=== PATIENT | male | born 1950 | race Caucasian/White ===

== ENCOUNTER 2019-01-03 17:01 | Emergency (ER) | payer OTHER ==
[~2019-01-03] VITALS: Ht 167.6 cm; Wt 88.5 kg
--- OUTSIDE RECORDS SUMMARY | ~2019-01-03 | XMS | Clinical Summary ---
Demographics + + + | Address | [address] | | | [place] [address] | + + + | Home Phone | | + + + | Preferred Language | Unknown | + + + | Marital Status | | + + + | Christianity Affiliation | Unknown | + + + | Race | Unknown | + + + | Ethnic Group | Unknown | + + + Author + + + | Author | [facility] | | | and [place] | + + + | Organization | [facility] | | | and [place] | + + + | Address | Unknown | + + + | Phone | Unavailable | + + + Support + + +---------+ + | Name | Relationship | Address | Phone | + + +---------+ + | Trinity Eoci | ECON | Unknown | | + + +---------+ + Care Team Providers + +------+ + | Care Manager Apple Name | Role | Phone | + +------+ + PCP | Unavailable | + +------+ + Allergies Not on File Medications Not on file Active Problems Not on file Family History + + +--------+ + | Medical History | Relation | Name | Comments | + + +--------+ + | Cancer | Brother | vaishnavi | gladder | + + +--------+ + | Coronary artery | Brother | vaishnavi | | | disease | | | | + + +--------+ + | Cancer | Father | | lung | + + +--------+ + | Alzheimer's disease | Mother | | | + + +--------+ + | Coronary artery | Mother | | | | disease | | | | + + +--------+ + + +--------+ + + | Relation | Name | Status | Comments | + +--------+ + + | Brother | vaishnavi | Alive | | + +--------+ + + | Brother | vaishnavi | | | + +--------+ + + | Father | | | | + +--------+ + + | Father | | | | + +--------+ + + | Mother | | Alive | | + +--------+ + + | Mother | | | | + +--------+ + + Social History + +-------+ +--------+------+ | Tobacco Use | Types | Packs/Day | Years | Date | | | | | Used | | + +-------+ +--------+------+ | Former Smoker | | | | | + +-------+ +--------+------+ + + + | Sex Assigned at | Date Recorded | | | | + + + | Not on file | | + + + + + + + | Job Start Date | Occupation | Industry | + + + + | Not on file | Not on file | Not on file | + + + + + + + + | Travel History | Travel Start | Travel End | + + + + + + | No recent travel history available. | + + Last Filed Vital Signs Not on file Plan of Treatment + + + + + | Health Maintenance | Due Date | Last Done | Comments | + + + + + | Vaccine: | | | | | Dtap/Tdap/Td (1 - | 9 | | | | Tdap) | | | | + + + + + | Vaccine: Zoster (1 | | | | | of 2) | 0 | | | + + + + + | Breast Cancer | | | | | Screening | 5 | | | + + + + + | Vaccine: | | | | | Pneumococcal 65+ | 5 | | | | Low/Medium Risk (1 | | | | | of 2 - PCV13) | | | | + + + + + | Vaccine: Influenza | | | | | (#1) | 9 | | | + + + + + Results Not on filefrom Last 3 Months"
--- OUTSIDE RECORDS SUMMARY | ~2019-01-03 | XMS | Encounter Summary ---
Demographics + + + | Address | [address] | | | [place] [address] | + + + | Home Phone | | + + + | Preferred Language | Unknown | + + + | Marital Status | | + + + | Advent Affiliation | Unknown | + + + | Race | Unknown | + + + | Ethnic Group | Unknown | + + + Author + + + | Author | [facility] | | | and [place] | + + + | Organization | [facility] | | | and [place] | + + + | Address | Unknown | + + + | Phone | Unavailable | + + + Support + + +---------+ + | Name | Relationship | Address | Phone | + + +---------+ + | [place] E[place] | ECON | Unknown | | + + +---------+ + Care Team Providers + +------+ + | Care Associate Professor Of Education Name | Role | Phone | + +------+ + PCP | Unavailable | + +------+ + Encounter Details +--------+ + + + + | Date | Type | Department | Care Team | Description | +--------+ + + + + | 07/26/ | Hospital | [facility] | | | | 2007 | Encounter | MED CTR XRAY [address] | | | | | | [address] | | | | | | [place] [address] | | | | | | [phone] | | | +--------+ + + + + Social History + +-------+ +--------+------+ | Tobacco Use | Types | Packs/Day | Years | Date | | | | | Used | | + +-------+ +--------+------+ | Never Assessed | | | | | + +-------+ [...] recent travel history available. | + + documented as of this encounter Plan of Treatment Not on filedocumented as of this encounter Visit Diagnoses Not on filedocumented in this encounter"
--- OUTSIDE RECORDS SUMMARY | ~2019-01-03 | XMS | Encounter Summary ---
Demographics + + + | Address | [address] | | | [place] [address] | + + + | Home Phone | | + + + | Preferred Language | Unknown | + + + | Marital Status | | + + + | Adventism Affiliation | Unknown | + + + | Race | Unknown | + + + | Ethnic Group | Unknown | + + + Author + + + | Author | [facility] | | | and [place] | + + + | Organization | [facility] | | | and [place] | + + + | Address | Unknown | + + + | Phone | Unavailable | + + + Support + + +---------+ + | Name | Relationship | Address | Phone | + + +---------+ + | [place] Eoci | ECON | Unknown | | + + +---------+ + Care Team Providers + +------+ + | Care Wedding Consultant Name | Role | Phone | + +------+ + PCP | Unavailable | + +------+ + Encounter Details +--------+ + + + + | Date | Type | Department | Care Team | Description | +--------+ + + + + | 03/16/ | Hospital | [facility] | | | | 2004 | Encounter | MED CTR EMERGENCY | | | | | | CENTER [address] | | | | | | [place] | | | | | | [address] | | | | | | [phone] | | | +--------+ + + + [...]
--- OUTSIDE RECORDS SUMMARY | ~2019-01-03 | XMS | Clinical Summary ---
Demographics + + + | Address | [address] | | | [place] [address] | + + + | Home Phone | | + + + | Preferred Language | Unknown | + + + | Marital Status | Single | + + + | Uatsdin Affiliation | Unknown | + + + | Race | Unknown | + + + | Ethnic Group | Unknown | + + + Author + + + | Author | [email or web address] [employer] (Historical as of | | | 10-10-18) | + + + | Organization | [facility] [employer] (Historical as of | | | 10-10-18) | + + + | Address | Unknown | + + + | Phone | Unavailable | + + + Support + + + + + | Name | Relationship | Address | Phone | + + + + + | [facility] | ECON | [address] | [facility] | [place], | | | | | [place] [address] | | + + + + + Care Team Providers + +------+ + | Care E Learning Manager Name | Role | Phone | + +------+ + | Epi Rutherford MD | PP | | + +------+ + Allergies No Known Allergies Current Medications + + +-------+---------+------+------+-------+ | Prescription | Sig. | Disp. | Refills | Star | End | Statu | | | | | | t | Date | s | | | | | | Date | | | + + +-------+---------+------+------+-------+ | nitroGLYCERIN | Place 0.4 mg under | | | | | Activ | | (NITROSTAT) 0.4 MG | the tongue every 5 | | | | | e | | SL tablet | (five) minutes as | | | | | | | | needed. | | | | | | + + +-------+---------+------+------+-------+ | losartan (COZAAR) | Take 100 mg by mouth | | | | | Activ | | 100 MG tablet | daily. | | | | | e | + + +-------+---------+------+------+-------+ | aspirin 81 MG EC | Take 81 mg by mouth | | | | | Activ | | tablet | daily with | | | | | e | | | breakfast. | | | | | | + + +-------+---------+------+------+-------+ | metoprolol | Take 100 mg by mouth | | | | | Activ | | (TOPROL-XL) 100 MG | daily. | | | | | e | | 24 hr tablet | | | | | | | + + +-------+---------+------+------+-------+ | omeprazole | Take 20 mg by mouth | | | | | Activ | | (PRILOSEC) 20 MG | 2 (two) times daily. | | | | | e | | capsule | | | | | | | + + +-------+---------+------+------+-------+ Active Problems + + + | Problem | Noted Date | + + + | Bilateral carpal tunnel syndrome | 05/06/2015 | + + + | SOB (shortness of breath) | 04/06/2013 | + + + | Abnormal ECG | 04/06/2013 | + + + Family History + + +--------+ + | Medical History | Relation | Name | Comments | + + +--------+ + | Cancer | Brother | vaishnavi | gladder | + + +--------+ + | Coronary art dis | Brother | vaishnavi | | + + +--------+ + | Cancer | Father | | lung | + + +--------+ + | Alzheimer's disease | Mother | | | + + +--------+ + | Coronary art dis | Mother | | | + + +--------+ + + +--------+ + + | Relation | Name | Status | Comments | + +--------+ + + | Brother | vaishnavi | Alive | | + +--------+ + + | Father | | | | + +--------+ + + | Mother | | Alive | | + +--------+ + + Social History + +-------+ +--------+ + | Tobacco Use | Types | Packs/Day | Years | Date | | | | | Used | | + +-------+ +--------+ + | Former Smoker | | | | Quit: 02/25/1996 | + +-------+ +--------+ + + +---+---+---+ | Smokeless Tobacco: | | | | | Never Used | | | | + +---+---+---+ + + +---------+ + | Alcohol Use | Drinks/We | oz/Week | Comments | | | ek | | | + + +---------+ + | No | | | | + + +---------+ + + + + | Sex Assigned at | Date Recorded | | | | + + + | Not on file | | + + + Last Filed Vital Signs + + + + | Vital Sign | Reading | Time Taken | + + + + | Blood Pressure | 130/78 | 04/06/2013 9:50 AM PST | + + + + | Pulse | 60 | 04/06/2013 9:47 AM PST | + + + + | Temperature | - | - | + + + + | Respiratory Rate | - | - | + + + + | Oxygen Saturation | 98% | 04/06/2013 9:47 AM PST | + + + + | Inhaled Oxygen | - | - | | Concentration | | | + + + + | Weight | 87.5 kg (193 lb) | 04/06/2013 9:47 AM PST | + + + + | Height | 167.6 cm (5' 6") | 04/06/2013 9:47 AM PST | + + + + | Body Mass Index | 31.15 | 04/06/2013 9:47 AM PST | + + + + Plan of Treatment + + + + [...] + Results Not on filefrom Last 3 Months Insurance + +--------+ +------+-------+---------+ | Payer | Benefi | Subscriber | Type | Phone | Address | | | t Plan | ID | | | | | | / | | | | | | | Group | | | | | + +--------+ +------+-------+---------+ | [employer] | [employer] | [id number] | | | | | | RECTIO | | | | | | | NAL | | | | | | | HEALTH | | | | | | | | | | | | | | PARTNE | | | | | | | RS | | | | | + +--------+ +------+-------+---------+ + +--------+ +--------+ + + | Guarantor Name | Accoun | Relation to | Date | Phone | Billing Address | | | t Type | Patient | of | | | | | | | | | | + +--------+ +--------+ + + | CORRE[employer],EASTERN | Correc | Self [birth year] Home: | [address] | | | tional | | 1901 | [phone] | [place] | | | | | | [phone] | [address] | | | Facili | | | | | | | ty | | | | | + +--------+ +--------+ + +
--- OUTSIDE RECORDS SUMMARY | ~2019-01-03 | XMS | Encounter Summary ---
Demographics + + + | Address | [address] | | | [place] [address] | + + + | Home Phone | | + + + | Preferred Language | Unknown | + + + | Marital Status | | + + + | Restorationist Affiliation | Unknown | + + + | Race | Unknown | + + + | Ethnic Group | Unknown | + + + Author + + + | Author | [facility] | | | and [place] | + + + | Organization | [facility] | | | and [place] | + + + | Address | Unknown | + + + | Phone | Unavailable | + + + Support + + +---------+ + | Name | Relationship | Address | Phone | + + +---------+ + | [place] Eoci | ECON | Unknown | | + + +---------+ + Care Team Providers + +------+ + | Care Biophysics Teacher Name | Role | Phone | + +------+ + PCP | Unavailable | + +------+ + Encounter Details +--------+ + + + + | Date | Type | Department | Care Team | Description | +--------+ + + + + | 03/16/ | Hospital | [facility] | | | | 2004 | Encounter | MED CTR EMERGENCY | | | | | | CENTER [address] | | | | | | [place] | | | | | | [address] | | | | | | [phone] | | | +--------+ + + + [...]
--- OUTSIDE RECORDS SUMMARY | ~2019-01-03 | XMS | Clinical Summary ---
Demographics + + + | Address | [address] | | | [place] [address] | + + + | Home Phone | | + + + | Preferred Language | Unknown | + + + | Marital Status | | + + + | Muslim Affiliation | Unknown | + + + | Race | Unknown | + + + | Ethnic Group | Unknown | + + + Author + + + | Author | [facility] | | | and [place] | + + + | Organization | [facility] | | | and [place] | + + + | Address | Unknown | + + + | Phone | Unavailable | + + + Support + + +---------+ + | Name | Relationship | Address | Phone | + + +---------+ + | Lea Eoci | ECON | Unknown | | + + +---------+ + Care Team Providers + +------+ + | Care Oil Extractor Name | Role | Phone | + [...]
--- OUTSIDE RECORDS SUMMARY | ~2019-01-03 | XMS | Clinical Summary ---
Demographics + + + | Address | [address] | | | [place] [address] | + + + | Home Phone | | + + + | Preferred Language | Unknown | + + + | Marital Status | Single | + + + | Orthodoxy Affiliation | Unknown | + + + | Race | Unknown | + + + | Ethnic Group | Unknown | + + + Author + + + | Author | [facility] (Historical as of | | | 10-10-18) | + + + | Organization | [facility] (Historical as of | | | 10-10-18) | + + + | Address | Unknown | + + + | Phone | Unavailable | + + + Support + + + + + | Name | Relationship | Address | Phone | + + + + + | [facility] | ECON | [address] | [facility] | | [place], | | | | | [place] [address] | | + + + + + Care Team Providers + +------+ + | Care Elderly Companion Name | Role | Phone | + [...] +------+-------+---------+ | [employer] | FC-COR | [id number] | | | | | | RECTIO [...] Self | [birth year] | Home: | [address] | | | tional | | 1901 | [phone] | [place] | | | | | | [address] | [address] | | | Facili | | | | | | | ty | | | | | + +--------+ +--------+ + +
--- OUTSIDE RECORDS SUMMARY | ~2019-01-03 | XMS | Encounter Summary ---
Demographics + + + | Address | [address] | | | [place] [address] | + + + | Home Phone | | + + + | Preferred Language | Unknown | + + + | Marital Status | | + + + | Yarsanism Affiliation | Unknown | + + + [...] Phone | + + +---------+ + | [place] Eoci | ECON | Unknown | | + + +---------+ + Care Team Providers + +------+ + | Care Builder Beam Name | Role | Phone | + +------+ + PCP | Unavailable | + +------+ + Encounter Details +--------+ + + + + | Date | Type | Department | Care Team | Description | +--------+ + + + + | 02/28/ | Hospital | [facility] | Sebastian Perez MD | | | 2005 - | Encounter | [facility] | [address] | | | | | INTENSIVE CARE UNIT | Aramis Mccarthy | | | 03/01/ | | [address] | [place], [place] | | | 2005 | | [place] | [address] | | | | | [address] | [phone] | | | | | [phone] | | | +--------+ + + + [...]
--- OUTSIDE RECORDS SUMMARY | ~2019-01-03 | XMS | Encounter Summary ---
Demographics + + + | Address | [address] | | | [place] [address] | + + + | Home Phone | | + + + | Preferred Language | Unknown | + + + | Marital Status | | + + + | Yazdanism Affiliation | Unknown | + + + | Race | Unknown | + + + | Ethnic Group | Unknown | + + + Author + + + | Author | [facility] | | | and [place] | + + + | Organization | [facility] | | | and [place] | + + + | Address | Unknown | + + + | Phone | Unavailable | + + + Support + + +---------+ + | Name | Relationship | Address | Phone | + + +---------+ + | [place] E[place] | ECON | Unknown | | + + +---------+ + Care Team Providers + +------+ + | Care Passenger Tire Builder Name | Role | Phone | + +------+ + PCP | Unavailable | + +------+ + Encounter Details +--------+ + + + + | Date | Type | Department | Care Team | Description | +--------+ + + + + | 02/28/ | Hospital | [facility] | Sebastian Perez MD | | | 2005 - | Encounter | [facility] | [address] | | | | | INTENSIVE CARE UNIT | Aramis Mccarthy | | | 03/01/ | | [address] | [place], [place] | | | 2005 | | [place], [place] | [address] | | | | | [address] | [phone] | | | | | [phone] | | | +--------+ + + + [...]
--- OUTSIDE RECORDS SUMMARY | ~2019-01-03 | XMS | Encounter Summary ---
Demographics + + + | Address | [address] | | | [place] [address] | + + + | Home Phone | | + + + | Preferred Language | Unknown | + + + | Marital Status | | + + + | Zoroastrianism Affiliation | Unknown | + + + | Race | Unknown | + + + | Ethnic Group | Unknown | + + + Author + + + | Author | [facility] | | | and [place] | + + + | Organization | [facility] | | | and [place] | + + + | Address | Unknown | + + + | Phone | Unavailable | + + + Support + + +---------+ + | Name | Relationship | Address | Phone | + + +---------+ + | [place] E[place] | ECON | Unknown | | + + +---------+ + Care Team Providers + +------+ + | Care Automotive Glazier Name | Role | Phone | + +------+ + PCP | Unavailable | + +------+ + Encounter Details +--------+ + + + + | Date | Type | Department | Care Team | Description | +--------+ + + + + | 07/26/ | Hospital | [facility] | | | | 2007 | Encounter | MED CTR XRAY [address] | | | | | | [address] | | | | | | [place] [address] | | | | | | [phone] | | | +--------+ + + + [...]
[~2019-01-03 17:01] MED LIST: ANTIFUNGAL30 GM TOP; ASPIRIN EC81 MG PO; CHLORTHALIDONE50 MG PO; COZAAR100 MG PO; GABAPENTIN100 MG PO; METOPROLOL SUCC50 MG PO; MICROZIDE12.5 MG PO; NITROSTAT0.4 MG SL; NORCO 5-325 TA1 EACH PO; OMEPRAZOLE20 MG PO; ZOFRAN ODT4 MG SL
--- NOTE | 2019-01-04 07:19 | EKG ---
[facility] [address] [facility] [address] [place], [place] [address] Signed Normal sinus rhythm Left anterior fascicular block Abnormal ECG Confirmed by JUAN QUEVEDO MD ([id number]) on 01/04/2019 7:19:14 AM Electronically Signed By: JUAN QUEVEDO MD 01/04/19 0719 PATIENT NAME: YESSENIA GRIFFITH JOSE Electrocardiogram DATE OF : 48 PHYSICIAN: JUAN QUEVEDO MD REPORT #: [id number] REPORT IS CONFIDENTIAL AND NOT TO BE RELEASED WITHOUT AUTHORIZATION
== END 2019-01-03 21:43 | disposition home or self-care (01) ==
LOC: ED 17:01
DX: R07.2 Precordial pain (principal); I10 Essential (primary) hypertension; Z86.73 Personal history of transient ischemic attack (TIA), and cerebral infarction without residual deficits; I25.2 Old myocardial infarction; Z87.891 Personal history of nicotine dependence; Z88.8 Allergy status to other drugs, medicaments and biological substances; Z79.899 Other long term (current) drug therapy
CPT/HCPCS: 71045; 80053; 84484; 85025; 93005; 93010; 99285-25

== ENCOUNTER 2019-04-10 13:27 | Emergency (ER) | payer OTHER ==
[~2019-04-10] VITALS: Ht 167.6 cm; Wt 88.5 kg
[2019-04-10] MEDS ORDERED: ZYRTEC10 MG PO (13:51)
== END 2019-04-10 16:58 | disposition home or self-care (01) ==
LOC: ED 13:27
DX: R25.1 Tremor, unspecified (principal); I10 Essential (primary) hypertension; I25.2 Old myocardial infarction; Z87.891 Personal history of nicotine dependence; Z79.899 Other long term (current) drug therapy
CPT/HCPCS: 70450; 99283-25

== ENCOUNTER 2019-04-25 00:30 | Emergency (ER) | payer OTHER ==
[~2019-04-25] VITALS: Ht 167.6 cm; Wt 88.5 kg
[~2019-04-25 00:30] MED LIST changes: +ZYRTEC10 MG PO
--- OUTSIDE RECORDS SUMMARY | 2019-04-25 00:32 | XMS ---
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 Radha has no Care Guidelines for this patient. Abel VISIT COUNT (12 MO.) 3 [facility] H. TOTAL 3 NOTE: Visits indicate total known visits. ED/C VISIT TRACKING (12 MO.) 04/25/2019 00:30 [facility] [place] TYPE: Emergency COMPLAINT: - CHEST PAIN 04/10/2019 13:27 [facility] [place] TYPE: Emergency COMPLAINT: - R ARM/SIDE SHAKING DIAGNOSES: - Essential (primary) hypertension - Tremor, unspecified - Tremor, unspecified - Personal history of nicotine dependence - Other superintendent container terminal (current) drug therapy - Old myocardial infarction 01/03/2019 17:02 [facility] TYPE: Emergency COMPLAINT: - CHEST PAIN DIAGNOSES: - Chest pain, unspecified - Essential (primary) hypertension - Other superintendent container terminal (current) drug therapy - Personal history of nicotine dependence - Old myocardial infarction - Allergy status to oth drug/meds/biol subst status - Prsnl hx of TIA (TIA), and cereb infrc w/o resid deficits - Precordial pain INPATIENT VISIT TRACKING (12 MO.) No inpatient visits to display in this time frame [email or web address]
--- NOTE | 2019-04-25 13:10 | EKG ---
[facility] [address] [facility] [address] [place] [address] Signed Sinus bradycardia Left axis deviation Incomplete right bundle branch block Abnormal ECG When compared with ECG of 03-JAN-2019 17:05, No significant change was found Confirmed by LAMAR BHATT MD ([id number]) on 04/25/2019 1:10:31 PM Electronically Signed By: LAMAR BHATT MD 04/25/19 1310 PATIENT NAME: YESSENIA GRIFFITH Electrocardiogram DATE OF : 48 PHYSICIAN: LAMAR BHATT MD REPORT #: [id number] REPORT IS CONFIDENTIAL AND NOT TO BE RELEASED WITHOUT AUTHORIZATION
== END 2019-04-25 03:00 | disposition home or self-care (01) ==
LOC: ED 00:30
DX: R07.2 Precordial pain (principal); I25.2 Old myocardial infarction; I10 Essential (primary) hypertension; Z86.73 Personal history of transient ischemic attack (TIA), and cerebral infarction without residual deficits; Z88.8 Allergy status to other drugs, medicaments and biological substances; Z79.899 Other long term (current) drug therapy
CPT/HCPCS: 71045; 80053; 83735; 84484; 85025; 93005; 93010; 99285-25

== ENCOUNTER 2019-08-13 01:30 | Observation (INO) | payer OTHER ==
[~2019-08-13] VITALS: Ht 167.6 cm; Wt 78.7 kg
[~2019-08-13 01:30] MED LIST changes: +CHLORTHALIDONE25 MG PO; -MICROZIDE12.5 MG PO
[2019-08-13] MEDS ORDERED: COZAAR50 MG PO (01:39)
[2019-08-13] MEDS ORDERED: NORCO 5-325 TA1 EACH PO (01:40)
--- NOTE | 2019-08-13 06:15 | NUR ---
Patient arrives to the unit via stretcher with 2 guard escort. Patient transfers to hospital bed with nursing staff assist. Vital signs taken, assessment complete. Patient in four point restraints.
--- NOTE | 2019-08-13 06:45 | NUR ---
FAXED TO [facility] ATTN CAROLEE [phone] SENT: FACESHEET/ED REPORTS. FAX CONFIRMATION RECEIVED [phone].
--- NOTE | 2019-08-13 06:55 | NUR ---
Patient sleeping, SpO2 falls to 77% on RA. 2LNC in place, SpO2 climbs to 98%.
--- NOTE | 2019-08-13 07:30 | NUR ---
PATIENT SHIFT REPORT RECIEVED FROM ROUTE SALES MANAGER RN. PATIENT RESTING IN BED WITH 2 GARDS AT THE BEDSDIE. CALL LIGHT IN REACH. WILL CONTINUE TO CLOSELY MONITOR.
--- NOTE | 2019-08-13 08:48 | NUR ---
PATIENT ASSESSMENT COMPLETED. PATIENT BREATH SOUNDS CLEAR. PATIENT ON RA AND SENIES SOB. BOWEL TONES ACTIVE. PATIENT DENIES TENDERNESS IN THE ABD. PATIENT DENIES CHEST PAIN. PATIENTS ONLY COMPLAINT IS SOME LEG CRAMPS THROUGH THE NIGHT. PATIENT HAS SHACKLES TO UPPER AND LOWER EXTREMITIES. CMS INTACT. PATIENT GOT UP TO THE BATHROOM WITH THE GARDS ASSIST. NO OTHER NEEDS AT THIS TIME. WILL CONTINUE TO CLOSELY MONITOR.
--- NOTE | 2019-08-13 09:15 | NUR ---
PATIENT IN BED WITH GUARDS IN ROOM. PATIENT DENIES USING ANY DME AT [facility]. HE STATES HE IS NORMALLY AMBULATORY. STATES HE HAS SOME TINGLING IN FEET THIS MORNING. DISCHARGE WILL BE TO [facility] PER THEIR PROTOCOL.
--- NOTE | 2019-08-13 10:00 | NUR ---
PATIENT WILL TRANSFER TO ROOM [address] ON [facility]. SEE NEW ORDERS AT THIS TIME. PATIENT SITTING AT THE EDGE OF THE BED STRETCHING HIS LEGS D/T LEG CRAMPS. MD DHILLON IS AWARE OF CRAMPING. WILL CONTINUE TO CLOSELY MONITOR.
--- NOTE | 2019-08-13 10:04 | EKG ---
[facility] [address] [facility] [place], [place] [address] Signed Normal sinus rhythm Incomplete right bundle branch block Abnormal QRS-T angle, consider primary T wave abnormality Abnormal ECG When compared with ECG of 25-APR-2019 00:34, Confirmed by JOSE DHILLON DO ([id number]) on 08/13/2019 10:04:11 AM Electronically Signed By: JOSE DHILLON DO 08/13/19 1004 PATIENT NAME: YESSENIA GRIFFITH Electrocardiogram DATE OF : 48 PHYSICIAN: JOSE DHILLON DO REPORT #: [id number] REPORT IS CONFIDENTIAL AND NOT TO BE RELEASED WITHOUT AUTHORIZATION
--- NOTE | 2019-08-13 10:32 | NUR ---
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 ADDED TO PT'S [facility] ALLERGY LIST, DIETARY CALLED AND NOTIFIED, PT TRANSFERRING TO ROOM 116.
--- NOTE | 2019-08-13 11:35 | NUR ---
PATIENT TRANSFERED TO ROOM 116. REPORT GIVEN TO AISLINN SALMON. ALL UPDATES GIVEN. PATIENT HAS A 250ML BOLUS GOING AT THIS TIME. STOP AFTER BOLUS IS FINISHED. ALL BELONINGS SENT WITH PATIENT. GARDAren X2 REMAIN WITH THE PATIENT. LUNCH ORDERED. NO FURTHER QUESTIONS.
--- NOTE | 2019-08-13 11:45 | NUR ---
1135: Pt arrived to room 116, report recieved from Marisel SALMON. Pt oriented to his room. 2 guards present and restrainted per the guards. Pt denies any sob, cp or any other problems and states "even the cramps are gone". VSS.
--- NOTE | 2019-08-13 12:37 | NUR ---
PT NOW EATING LUNCH AND DENIES ANY PROBLEMS AT THIS TIME.
--- NOTE | 2019-08-13 14:21 | NUR ---
PT RESTING IN HIS BED AND DENIES ANY PAIN OR PROBLEMS. NO NOTED CHANGES IN CONDITION NOTED, SEE ASSESSMENT.
[2019-08-13] MEDS ORDERED: NORVASC5 MG PO (16:17)
[2019-08-13] MEDS ORDERED: TUCKS1 EAC1 TOP (16:18)
[2019-08-13] MEDS ORDERED: ZYRTEC10 MG PO (16:19)
[2019-08-13] MEDS ORDERED: VOLTAREN100 GM TOP (16:21)
[2019-08-13] MEDS ORDERED: THERA-GEL251 ML TOP (16:24)
[2019-08-13] MEDS ORDERED: ALLERGY EYE DRO10 M1 OU (16:25)
--- NOTE | 2019-08-13 16:29 | NUR ---
MED REC COMPLETE
--- NOTE | 2019-08-13 16:35 | NUR ---
PT RESTING IN THE BED AND DENIES ANY CRAMP, SOB OR CHEST PAIN. HE STATES THAT HE IS DOING "GREAT". TWO GUARDS REMAIN PRESENT IN THE ROOM WITH THE PT.
--- NOTE | 2019-08-13 17:54 | NUR ---
PATIENT SITTING UP IN BED VISITING WITH OFFICERS AND EATING DINNER. VITALS AND I&OS DONE AND CHARTED. CALL LIGHT IN REACH NO OTHER NEEDS
--- NOTE | 2019-08-13 19:28 | NUR ---
PATIENT HAVING NO PAIN AND EATING DINNER IN STANDARD EOCI RESTRAINTS WITH 2 OFFICERS PRESENT, PATIENT HAVING A LITTLE REFLUX AND REQUESTING SOMETHING ELSE FOR THAT AND WAS INFORMED. CALL LIGHT IN REACH.
--- NOTE | 2019-08-13 21:30 | NUR ---
PATIENT'S IV SITE ROTATED AND WROTE AN ORDER FOR EXTRA 25MG OF COZAAR TONIGHT. RIGHT AC IV PULLED AND LEFT AC IV STARTED, 22G, DRAWS AND FLUSHES WELL. PATIENT REMAINS IN STANDARD [facility] RESTRAINTS WITH 2 OFFICERS PRESENT. CALL LIGHT IN REACH.
--- NOTE | 2019-08-13 22:43 | NUR ---
PATIENT CONTINUES TO SIT IN BED AND WATCH TV WITH 2 [facility] OFFICERS PRESENT. CALL LIGHT IN REACH.
--- NOTE | 2019-08-13 23:25 | NUR ---
PATIENT'S LIGHTS AND TV OFF NOW, PATIENT RESTING QUIETLY, STAUS UNCHANGED, AND 2 [facility] OFFICERS IN RM.
--- NOTE | 2019-08-14 01:09 | NUR ---
[facility] OFFICERS HAVE CHANGED SHIFT, PATIENT IS RESTING IN BED WATCHING TV, AND WAS GIVEN 240MLS OF CRANBERRY JUICE, STILL WITHIN HIS FLUID RESTRICTION. PATIENT HAS NO OTHER NEEDS AT THIS TIME. CALL LIGHT IN REACH.
--- NOTE | 2019-08-14 01:38 | NUR ---
PATIENT AWAKE AND VISITING WITH [facility] OFFICERS. CALL LIGHT IN REACH. ASSESSMENT UNCHANGED.
--- NOTE | 2019-08-14 03:31 | NUR ---
PATIENT IS STILL TALKING WITH THE 2 [facility] OFFICERS, BUT SAYS HE IS GOING TO TRY AND GET SOME SLEEP NOW. CALL LIGHT IN REACH AND LIGHTS TURNED DOWN.
--- NOTE | 2019-08-14 05:07 | NUR ---
PATIENT HAS ONLY SLEPT FOR ABOUT 1.5HRS TONIGHT ACCORDING TO THE 2 OFFICERS IN THE ROOM. HE HAS HAD NO PAIN OR SOB. REMIANS IN STANDARD [facility] RESTRAINTS. NEW 22G IV PLACED IN THE LAC AND RAC PRE-HOSPITAL START WAS DC'D. PATIENT AMBULATES WITHOUT DIFFICULTY AND IS CONSTANTLY TALKING AND TELLING STORIES. PATIENT IS EAGER TO GO BACK TO [facility] THIS MORNING. CALL LIGHT IS IN REACH AND PATIENT IS WATCHING TV.
--- NOTE | 2019-08-14 07:12 | NUR ---
Report received, orders acknowledged.
--- NOTE | 2019-08-14 09:15 | NUR ---
Patient laying in bed in four-point restraints, two guards standing at bedside. AM medications given, assessment complete. Warm blanket provided, denies further needs at this time. Call light within reach.
--- NOTE | 2019-08-14 10:01 | NUR ---
PATIENT IN BED WATCHING TV, 2 GUARDS IN ROOM. NO VOID AT THIS TIME, WILL CHECK BACK IN. CALL LIGHT IN REACH. NO FURTHER NEEDS AT THIS TIME.
--- NOTE | 2019-08-14 11:15 | NUR ---
Patient ambulating in room with four-point restraints in place, two guards in room. Requests warm blankets, which are provided. Denies further needs at this time, call light within reach.
--- NOTE | 2019-08-14 12:28 | NUR ---
Patient sitting up in bed, four-point restraints in place. Two guards standing at bedside. Lunch delivered. Patient denies needs at this time, call light within reach.
--- NOTE | 2019-08-14 15:00 | NUR ---
Patient sitting up in bed with four-point restraints on, two guards at bedside. Denies needs at this time, call light within reach.
--- NOTE | 2019-08-14 17:00 | NUR ---
Patient sitting up in bed. Discharge packet given to guards. Patient in four-point restraints. Leaves unit in wheelchair with four-point shackles and two guards.
--- NOTE | 2019-08-14 17:27 | NUR ---
PATIENT SITTING UP TO EAT DINNER, 2 GUARDS IN ROOM. IV TAKEN OUT UPON RN REQUEST. CATH IN TACT AND LOOKED GOOD, RN NOTIFED. CALL LIGHT IN REACH. NO FURTHER NEEDS AT THIS TIME.
--- NOTE | 2019-08-14 18:16 | NUR ---
Report given to RN at [facility]
== END 2019-08-14 17:50 | disposition home or self-care (01) ==
LOC: ED 01:30 → CCU 01:31 → MS 11:35
PROVIDERS: ADMIT Student in an Organized Health Care Education/Training Program
DX: E87.1 Hypo-osmolality and hyponatremia (principal); I10 Essential (primary) hypertension; K21.9 Gastro-esophageal reflux disease without esophagitis; I25.10 Atherosclerotic heart disease of native coronary artery without angina pectoris; Z88.8 Allergy status to other drugs, medicaments and biological substances; Z79.899 Other long term (current) drug therapy
CPT/HCPCS: 36415; 71045; 80048; 80053; 81001; 83735; 84295; 84300; 84484; 85025; 85379; 85610; 93005; 93010; 96360; 96361; 96374; 99285-25; C9803; G0378; J3475; J7040; U0002

== ENCOUNTER 2019-09-07 01:56 | Emergency (ER) | payer OTHER ==
[~2019-09-07] VITALS: Ht 167.6 cm; Wt 75.8 kg
--- OUTSIDE RECORDS SUMMARY | ~2019-09-07 | XMS | Clinical Summary ---
Demographics + + + | Address | [address] | | | [place] [address] | + + + | Home Phone | | + + + | Preferred Language | Unknown | + + + | Marital Status | | + + + | Nondenominational Affiliation | Unknown | + + + | Race | Unknown | + + + | Ethnic Group | Unknown | + + + Author + + + | Author | [facility] | | | and [place] | + + + | Organization | [facility] | | | and [place] | + + + | Address | Unknown | + + + | Phone | Unavailable | + + + Support + + +---------+ + | Name | Relationship | Address | Phone | + + +---------+ + | [place] E[place] | ECON | Unknown | | + + +---------+ + Care Team Providers + +------+ + | Care Research Laboratory Manager Name | Role | Phone | [...] + + + Last Filed Vital Signs Not on file Plan of Treatment +--------+---------+ + + + | Date | Type | Specialty | Care Team | Description | +--------+---------+ + + + | 09/20/ | Office | Cardiology | Ezra Townsend, | | | 2019 | Visit | | MD [address] | | | | | | [place], | | | | | | [place] [address] | | | | | | [phone] | | | | | | | | +--------+---------+ + + + + + +-------+ + | Health Maintenance | Due Date | Last | Comments | | | | Done | | + + +-------+ + | Hepatitis C | | | | | Screening | 0 | | | + + +-------+ + | Vaccine: | | | | | Dtap/Tdap/Td (1 - | 9 | | | | Tdap) | | | | + + +-------+ + | Colorectal Cancer | | | | | Screening | 0 | | | | (Colonoscopy) | | | | + + +-------+ + | Vaccine: Zoster (1 | | | | | of 2) | 0 | | | + + +-------+ + | Breast Cancer | | | | | Screening | 5 | | | + + +-------+ + | Vaccine: | | | | | Pneumococcal 65+ (1 | 5 | | | | of 1 - PPSV23) | | | | + + +-------+ + | Adult Annual | | | | | Wellness Visit | 0 | | | + + +-------+ + | Statin Therapy | | | | | (optimal intensity) | 0 | | | + + +-------+ + | Vaccine: Influenza | | | | | (#1) | 0 | | | + + +-------+ + Results Not on filefrom Last 3 Months Insurance + +--------+ +--------+-------+---------+--------+ | Payer | Benefi | Subscriber | Effect | Phone | Address | Type | | | t Plan | ID | margarito | | | | | | / | | Dates | | | | | | Group | | | | | | + +--------+ +--------+-------+---------+--------+ | DEPARTMENT OF | CORRCT | [id number] | Effect | | | Indemn | | CORRECTIONS | NL | | margarito | | | ity | | | HLTH | | for | | | | | | FIRST | | all | | | | | | [place] | | dates | | | | + +--------+ +--------+-------+---------+--------+ + +--------+ +--------+ + + | Guarantor Name | Accoun | Relation to | Date | Phone | Billing Address | | | t Type | Patient | of | | | | | | | | | | + +--------+ +--------+ + + | [employer] | [employer] | Employer | [birth year] | | [id number] | | [place] | ate | | 1902 | [phone] | [address] [facility] [place] | | | | | | [place] (Home) | [phone] | + +--------+ +--------+ + + Advance Directives + + + + + | Type | Date Recorded | Patient | Explanation | | | | Modern And Contemporary Art Curator | | + + + + + | Power of | | | | | Concrete Inspector | | | | + + + + + | Advance | | | | | Directive | | | | + + + + +"
--- OUTSIDE RECORDS SUMMARY | ~2019-09-07 | XMS | Encounter Summary ---
Demographics + + + | Address | [address] | | | [place] [address] | + + + | Home Phone | | + + + | Preferred Language | Unknown | + + + | Marital Status | | + + + | Gnosticism Affiliation | Unknown | + + + | Race | Unknown | + + + | Ethnic Group | Unknown | + + + Author + + + | Author | [facility] | | | and [place] | + + + | Organization | [facility] | | | and [place] | + + + | Address | Unknown | + + + | Phone | Unavailable | + + + Support + + +---------+ + | Name | Relationship | Address | Phone | + + +---------+ + | [place] Eoci | ECON | Unknown | | + + +---------+ + Care Team Providers + +------+ + | Care Generator Switchboard Operator Name | Role | Phone | + +------+ + PCP | Unavailable | + +------+ + Encounter Details +--------+ + + + + | Date | Type | Department | Care Team | Description | +--------+ + + + + | 02/28/ | Hospital | [facility] | Sebastian Perez MD | | | 2005 - | Encounter | [facility] | [address] | | | | | INTENSIVE CARE UNIT | Aramis Mccarthy | | | 03/01/ | | [address] | [place], [place] | | | 2005 | | [place], [place] | [address] | | | | | [address] | [phone] | | | | | [phone] | | | +--------+ + + + [...] on file | | + + + documented as of this encounter Plan of Treatment +--------+---------+ + + + | Date | Type | Specialty | Care Team | Description | +--------+---------+ + + + | 09/20/ | Office | Cardiology | Ezra Townsend, | | | 2019 | Visit | | MD [address] | | | | | | [place], | | | | | | [place] [address] | | | | | | [phone] | | | | | | | | +--------+---------+ + + + documented as of this encounter Visit Diagnoses Not on filedocumented in this encounter"
--- OUTSIDE RECORDS SUMMARY | ~2019-09-07 | XMS | Encounter Summary ---
Demographics + + + | Address | [address] | | | [place] [address] | + + + | Home Phone | | + + + | Preferred Language | Unknown | + + + | Marital Status | | + + + | Yazidism Affiliation | Unknown | + + + | Race | Unknown | + + + | Ethnic Group | Unknown | + + + Author + + + | Author | [facility] | | | and [place] | + + + | Organization | [facility] | | | and [place] | + + + | Address | Unknown | + + + | Phone | Unavailable | + + + Support + + +---------+ + | Name | Relationship | Address | Phone | + + +---------+ + | [place] Eoci | ECON | Unknown | | + + +---------+ + Care Team Providers + +------+ + | Care Telephone Installer Name | Role | Phone | + +------+ + PCP | Unavailable | + +------+ + Encounter Details +--------+ + + + + | Date | Type | Department | Care Team | Description | +--------+ + + + + | 07/26/ | Hospital | [facility] | | | | 2007 | Encounter | MED CTR XRAY [address] | | | | | | [address] [place] | | | | | | [place] [address] | | | | | | [phone] | | | +--------+ + + + [...] Cardiology | Ezra Townsend, | | | 2020 | Visit | | MD [address] | | | | | | [place], | | | | | | [place] [address] | | | | | | [phone] | | | | | | | | +--------+---------+ + + + documented as of this encounter Visit Diagnoses Not on filedocumented in this encounter"
--- OUTSIDE RECORDS SUMMARY | ~2019-09-07 | XMS | Encounter Summary ---
Demographics + + + | Address | [address] | | | [place] [address] | + + + | Home Phone | | + + + | Preferred Language | Unknown | + + + | Marital Status | | + + + | Jain Affiliation | Unknown | + + + | Race | Unknown | + + + | Ethnic Group | Unknown | + + + Author + + + | Author | [facility] | | | and [place] | + + + | Organization | [facility] | | | and [place] | + + + | Address | Unknown | + + + | Phone | Unavailable | + + + Support + + +---------+ + | Name | Relationship | Address | Phone | + + +---------+ + | [place] Eoci | ECON | Unknown | | + + +---------+ + Care Team Providers + +------+ + | Care Gourmet Coffee Attendant Name | Role | Phone | + +------+ + PCP | Unavailable | + +------+ + Encounter Details +--------+ + + + + | Date | Type | Department | Care Team | Description | +--------+ + + + + | 03/16/ | Hospital | [facility] | | | | 2004 | Encounter | MED CTR EMERGENCY | | | | | | CENTER [address] | | | | | | [place] | | | | | | [address] | | | | | | [phone] | | | +--------+ + + + [...] [place], | | | | | | [place] [address] | | | | | | [phone] | | | | | | | | +--------+---------+ + + + documented as of this encounter Visit Diagnoses Not on filedocumented in this encounter"
[~2019-09-07 01:56] MED LIST changes: +ALLERGY EYE DRO10 M1 OU; +COZAAR50 MG PO; +NORVASC5 MG PO; +THERA-GEL251 ML TOP; +TUCKS1 EAC1 TOP; +VOLTAREN100 GM TOP
--- OUTSIDE RECORDS SUMMARY | 2019-09-07 02:00 | XMS ---
PreManage Notification: YESSENIA GRIFFITH Security Watershed Manager Events No recent Security Events currently on file CRITERIA MET - [facility] - 2 Visits in 30 Days CARE PROVIDERS KALEY CONKLIN Anesthesiology: Pain Medicine 04/26/2019-Current PHONE: Unknown Radha has no Care Guidelines for this patient. Abel VISIT COUNT (12 MO.) 5 [facility] TOTAL 5 NOTE: Visits indicate total known visits. ED/UCC VISIT TRACKING (12 MO.) 09/07/2019 01:57 [facility] [place] TYPE: Emergency COMPLAINT: - CHEST PAIN 08/13/2019 01:30 [facility] [place] TYPE: Emergency COMPLAINT: - CHEST PAIN 04/25/2019 00:30 [facility] [place] TYPE: Emergency COMPLAINT: - CHEST PAIN DIAGNOSES: - Precordial pain - Essential (primary) hypertension - Other penitentiary (current) drug therapy - Allergy status to other drugs, medicaments and biological sub - Personal history of transient ischemic attack (TIA), and cere - Old myocardial infarction 04/10/2019 13:27 [facility] [place] TYPE: Emergency COMPLAINT: - R ARM/SIDE SHAKING DIAGNOSES: - Essential (primary) hypertension - Tremor, unspecified - Tremor, unspecified - Personal history of nicotine dependence - Other penitentiary (current) drug therapy - Old myocardial infarction 01/03/2019 17:02 [facility] [place] TYPE: Emergency COMPLAINT: - CHEST PAIN DIAGNOSES: - Chest pain, unspecified - Essential (primary) hypertension - Other terminal block assembler (current) drug therapy - Personal history of nicotine dependence - Old myocardial infarction - Allergy status to other drugs, medicaments and biological sub - Personal history of transient ischemic attack (TIA), and cere - Precordial pain INPATIENT VISIT TRACKING (12 MO.) 08/13/2019 01:31 [facility] [place] TYPE: Observation COMPLAINT: - HYPONATREMIA DIAGNOSES: - Chest pain, unspecified - Gastro-esophageal reflux disease without esophagitis - Hypo-osmolality and hyponatremia - Other penitentiary (current) drug therapy - Atherosclerotic heart disease of [place] coronary artery witho - Allergy status to other drugs, medicaments and biological sub - Essential (primary) hypertension [email or web address]
[2019-09-07] MEDS ORDERED: METOPROLOL SUCC25 MG PO (02:16)
--- NOTE | 2019-09-07 09:08 | EKG ---
[facility] [address] [facility] [place] [address] Signed Sinus bradycardia Left axis deviation ST \T\ T wave abnormality, consider lateral ischemia Abnormal ECG When compared with ECG of 13-AUG-2019 01:38, Incomplete right bundle branch block is no longer present Confirmed by LAMRA BHATT MD ([id number]) on 09/07/2019 9:08:43 AM Electronically Signed By: LAMAR BHATT MD 09/07/19 0908 PATIENT NAME: NACHOYESSENIA Electrocardiogram DATE OF : 48 PHYSICIAN: LAMAR BHATT MD REPORT #: [id number] REPORT IS CONFIDENTIAL AND NOT TO BE RELEASED WITHOUT AUTHORIZATION
== END 2019-09-07 05:57 | disposition home or self-care (01) ==
LOC: ED 01:56
DX: R07.89 Other chest pain (principal); I10 Essential (primary) hypertension; Z86.73 Personal history of transient ischemic attack (TIA), and cerebral infarction without residual deficits; K21.9 Gastro-esophageal reflux disease without esophagitis; Z87.891 Personal history of nicotine dependence; Z91.010 Allergy to peanuts; Z88.8 Allergy status to other drugs, medicaments and biological substances; Z79.899 Other long term (current) drug therapy
CPT/HCPCS: 71045; 80053; 83735; 84484; 85025; 93005; 93010; 99285-25

== ENCOUNTER 2019-11-24 09:12 | Emergency (ER) | payer OTHER | END 2019-11-24 10:56 | disposition home or self-care (01) | LOC: ED 09:12 | DX: U07.1 COVID-19 (principal); J12.89 Other viral pneumonia; I25.2 Old myocardial infarction; I10 Essential (primary) hypertension; Z86.73 Personal history of transient ischemic attack (TIA), and cerebral infarction without residual deficits; K21.9 Gastro-esophageal reflux disease without esophagitis; Z87.891 Personal history of nicotine dependence; Z91.010 Allergy to peanuts; Z88.8 Allergy status to other drugs, medicaments and biological substances; Z79.899 Other long term (current) drug therapy ==

== ENCOUNTER 2020-01-30 14:44 | Emergency (ER) | payer OTHER ==
[~2020-01-30] VITALS: Ht 167.6 cm; Wt 80.3 kg
[~2020-01-30 14:44] MED LIST changes: +ATHLETIC FOOT C30 GM TOP; +METOPROLOL SUCC25 MG PO; +OCUVEL CAPSULE1 EACH PO
[2020-01-30] MEDS ORDERED: TOPROL XL200 MG PO (15:09)
[2020-01-30] MEDS ORDERED: DIPHENHYDR50 MG/1 M2 IM (15:13)
== END 2020-01-30 18:20 | disposition home or self-care (01) ==
LOC: ED 14:44
DX: G45.9 Transient cerebral ischemic attack, unspecified (principal); I10 Essential (primary) hypertension; I25.2 Old myocardial infarction; Z86.73 Personal history of transient ischemic attack (TIA), and cerebral infarction without residual deficits; K21.9 Gastro-esophageal reflux disease without esophagitis; Z87.891 Personal history of nicotine dependence; Z88.8 Allergy status to other drugs, medicaments and biological substances; Z88.7 Allergy status to serum and vaccine; Z91.010 Allergy to peanuts; Z79.899 Other long term (current) drug therapy
CPT/HCPCS: 70450; 80053; 81001; 83735; 84484; 85025; 93005; 99284-25

== ENCOUNTER 2020-12-23 03:40 | Emergency (ER) | payer OTHER ==
[~2020-12-23] VITALS: Ht 167.6 cm; Wt 85.7 kg
[~2020-12-23 03:40] MED LIST changes: +ADULT ASPIRIN R81 MG PO; +DIPHENHYDR50 MG/1 M2 IM; +HYDROCODON-ACE1 EAC8 PO; +TOPROL XL200 MG PO
[2020-12-23] MEDS ORDERED: HYDROCHLOROTHIA25 MG PO (04:46)
--- NOTE | 2020-12-23 18:12 | EKG ---
[facility] [address] [facility] [place], [place] [address] Signed Normal sinus rhythm Left anterior fascicular block Abnormal ECG When compared with ECG of 21-APR-2020 07:32, No significant change was found Confirmed by JUAN QUEVEDO MD ([id number]) on 12/23/2020 6:11:54 PM Electronically Signed By: JUAN QUEVEDO MD 12/23/201811 PATIENT NAME: YESSENIA GRIFFITH Electrocardiogram DATE OF : 48 PHYSICIAN: JUAN QUEVEDO MD REPORT #: [id number] REPORT IS CONFIDENTIAL AND NOT TO BE RELEASED WITHOUT AUTHORIZATION
== END 2020-12-23 07:01 | disposition home or self-care (01) ==
LOC: ED 03:40
DX: R07.89 Other chest pain (principal); I25.2 Old myocardial infarction; I10 Essential (primary) hypertension; K21.9 Gastro-esophageal reflux disease without esophagitis; Z87.891 Personal history of nicotine dependence; Z88.8 Allergy status to other drugs, medicaments and biological substances; Z88.7 Allergy status to serum and vaccine; Z91.010 Allergy to peanuts; Z79.899 Other long term (current) drug therapy; Z79.82 Long term (current) use of aspirin
CPT/HCPCS: 71045; 80053; 84484; 85025; 85379; 93005; 93010; 96374; 99285-25; J1885

== ENCOUNTER 2021-01-30 01:51 | Emergency (ER) | payer OTHER ==
[~2021-01-30] VITALS: Ht 167.6 cm; Wt 85.3 kg
[~2021-01-30 01:51] MED LIST changes: +HYDROCHLOROTHIA25 MG PO
[2021-01-30] MEDS ORDERED: CHLORTHALIDONE25 MG PO (02:07)
[2021-01-30] MEDS ORDERED: COZAAR25 MG PO (02:09)
[2021-01-30] MEDS ORDERED: TOPROL XL50 MG PO (02:10)
[2021-01-30] MEDS ORDERED: K-TAB ER20 MEQ PO (02:12)
--- NOTE | 2021-01-30 15:46 | EKG ---
[facility] [address] [facility] [place], [place] [address] Signed Sinus bradycardia Left axis deviation Abnormal ECG When compared with ECG of 23-DEC-2020 03:54, No significant change was found Confirmed by LAMAR BHATT MD ([id number]) on 01/30/2021 3:46:19 PM Electronically Signed By: LAMAR BHATT MD 01/30/21 1546 PATIENT NAME: YESSENIA GRIFFITH Electrocardiogram DATE OF : 48 PHYSICIAN: LAMAR BHATT MD REPORT #: [id number] REPORT IS CONFIDENTIAL AND NOT TO BE RELEASED WITHOUT AUTHORIZATION
== END 2021-01-30 04:46 | disposition home or self-care (01) ==
LOC: ED 01:51
DX: R07.9 Chest pain, unspecified (principal); I25.2 Old myocardial infarction; I10 Essential (primary) hypertension; K21.9 Gastro-esophageal reflux disease without esophagitis; Z87.891 Personal history of nicotine dependence; Z88.8 Allergy status to other drugs, medicaments and biological substances; Z88.7 Allergy status to serum and vaccine; Z91.010 Allergy to peanuts; Z79.899 Other long term (current) drug therapy; Z79.82 Long term (current) use of aspirin
CPT/HCPCS: 71045; 80053; 83735; 84484; 85025; 93005; 93010; 99285-25

== ENCOUNTER 2023-06-25 04:20 | Emergency (ER) | payer OTHER ==
[~2023-06-25] VITALS: Ht 167.6 cm; Wt 82.0 kg
[~2023-06-25 04:20] MED LIST changes: +COZAAR25 MG PO; +K-TAB ER20 MEQ PO; +TOPROL XL50 MG PO
--- OUTSIDE RECORDS SUMMARY | 2023-06-25 04:29 | XMS ---
PreManage Notification: YESSENIA GRIFFITH Security Data Governance Analyst Events No recent Security Events currently on file CRITERIA MET - [facility] - 2 Visits in 30 Days CARE PROVIDERS KALEY CONKLIN Anesthesiology: Pain Medicine 04/26/2019-Current PHONE: [phone] Radha has no Care Guidelines for this patient. E.Gregoria. VISIT COUNT (12 MO.) 2 [facility] TOTAL 2 NOTE: Visits indicate total known visits. ED/UCC VISIT TRACKING (12 MO.) 06/25/2023 04:21 [facility] [place] TYPE: Emergency COMPLAINT: - NAUSEA 06/03/2023 03:12 [facility] [place] TYPE: Emergency COMPLAINT: - CHEST PAIN DIAGNOSES: - Allergy status to other drugs, medicaments and biological substances - Allergy status to serum and vaccine - Allergy to peanuts - Essential (primary) hypertension - termite exterminator helper (current) use of aspirin - Old myocardial infarction - Other chest pain - Other termite exterminator helper (current) drug therapy - Personal history of nicotine dependence - Personal history of transient ischemic attack (TIA), and cerebral infarction without residual deficits - Precordial pain INPATIENT VISIT TRACKING (12 MO.) No inpatient visits to display in this time frame [email or web address]
[2023-06-25 04:41] LABS: BASOPHILS 1.2 % (0-2); EOSINOPHILS 2.7 % (0-6); HEMATOCRIT 43.1 % (35.0-50.0); HEMOGLOBIN 14.8 g/dL (12.0-18.0); LYMPHOCYTES 21.1 % (24-44); MCH 29.4 (27-36); MCHC 34.3 g/dl (30-36); MCV 85.5 fl (81-99); MONOCYTES 11.4 % (0-12); NEUTROPHILS 63.6 % (39-80); PLATELET COUNT 368 K/uL (140-440); RBC 5.04 M/ul (4.3-5.7); RDW 14.2 (10.5-15.0)
[2023-06-25] MEDS ORDERED: AVAPRO75 MG PO (04:42)
[2023-06-25] MEDS ORDERED: PRESERVISION A1 EAC4 PO (04:42)
[2023-06-25] MEDS ORDERED: OMEPRAZOLE20 MG PO (04:43)
[2023-06-25] MEDS ORDERED: ASPERFLEX1 EACH TOP (04:43)
[2023-06-25] MEDS ORDERED: ALL DAY ALLERGY10 M3 PO (04:43)
[2023-06-25] MEDS ORDERED: UREA85 G1 TOP (04:44)
[2023-06-25] MEDS ORDERED: VITAMIN D250 MCG PO (04:45)
[2023-06-25] MEDS ORDERED: 24 HOUR NASAL16.9 ML NAS (04:45)
[2023-06-25 04:50] LABS: INR 1.01 (0.80-1.30); PROTIME 12.6 Sec (11.2-14.2)
[2023-06-25 05:02] LABS: ALBUMIN 3.6 g/dL (3.4-5.0); ALBUMIN/GLOBULIN RATIO 0.9 (1.1-2.4); ANION GAP 15.7 (7-21); BILIRUBIN, TOTAL 0.5 ng/dL (0.2-1.0); BUN/CREATININE RATIO 13.51 (6.0-28.6); CALCIUM 8.7 mg/dL (8.5-10.1); CREATININE, SERUM 1.11 mg/dL (0.70-1.30); MAGNESIUM 1.7 mg/dL (1.8-2.4); POTASSIUM 3.7 mmol/L (3.5-5.1); PROTEIN, TOTAL 7.6 g/dL (6.4-8.2)
[2023-06-25] MEDS ORDERED: ENALAPRILAT DIHYDRATE 1.25 MG/ML VIAL IV ONE (05:45)
[2023-06-25 07:02] VITALS: BP 161/91
--- NOTE | 2023-06-25 22:42 | EKG ---
[facility] [address] [place] [address] Signed Sinus bradycardia Left axis deviation Abnormal ECG When compared with ECG of 03-JUN-2023 03:13, No significant change was found Confirmed by Aline Stephens MD () on 06/25/2023 10:42:28 PM Electronically Signed By: ALINE STEPHENS MD 06/25/232241 PATIENT NAME: NACHOYESSENIA JOSE Electrocardiogram DATE OF : 48 PHYSICIAN: ALINE STEPHENS MD REPORT #: [id number] REPORT IS CONFIDENTIAL AND NOT TO BE RELEASED WITHOUT AUTHORIZATION
== END 2023-06-25 07:03 | disposition home or self-care (01) ==
LOC: ED 04:20
PROVIDERS: Family Medicine
DX: R07.89 Other chest pain (principal); I10 Essential (primary) hypertension; K21.9 Gastro-esophageal reflux disease without esophagitis; Z87.891 Personal history of nicotine dependence; Z91.010 Allergy to peanuts; Z88.8 Allergy status to other drugs, medicaments and biological substances; Z88.7 Allergy status to serum and vaccine; Z79.899 Other long term (current) drug therapy; Z79.82 Long term (current) use of aspirin
CPT/HCPCS: 36415; 70450; 71045; 80053; 83735; 83880; 84484; 85025; 85610; 93005; 93010; 96374; 99285-25

== ENCOUNTER 2023-12-17 16:33 | Emergency (ER) | payer OTHER ==
[~2023-12-17] VITALS: Ht 167.6 cm; Wt 80.5 kg
[~2023-12-17 16:33] MED LIST changes: +24 HOUR NASAL16.9 ML NAS; +ALEVAZOL56.7 GM TOP; +ALL DAY ALLERGY10 MG PO; +ARTHRITIS PAIN150 G1 TOP; +ASPERFLEX1 EACH TOP; +AVAPRO75 MG PO; +CLOPIDOGREL75 MG PO; +DHS TAR120 ML TOP; +DIPHENHYDRAMINE50 M1 PO; +FLOMAX0.4 MG PO; +LIPITOR40 MG PO; +LOSARTAN POTASS50 MG PO; +PRESERVISION A1 EAC3 PO; +PRESERVISION A1 EAC4 PO; +UREA85 G1 TOP; +VITAMIN D250 MCG PO
--- OUTSIDE RECORDS SUMMARY | 2023-12-17 16:36 | XMS ---
PreManage Notification: YESSENIA GRIFFITH Security Powder Press Operator Events No recent Security Events currently on file CRITERIA MET - [facility] - 2 Visits in 30 Days CARE PROVIDERS KALEY CONKLIN Anesthesiology: Pain Medicine 04/26/2019-Current PHONE: [phone] Radha has no Care Guidelines for this patient. [place] VISIT COUNT (12 MO.) 4 [facility] TOTAL 4 NOTE: Visits indicate total known visits. ED/UCC VISIT TRACKING (12 MO.) 12/17/2023 16:34 [facility] [place] TYPE: Emergency COMPLAINT: - HEART RATE ISSUES 11/20/2023 10:41 [facility] [place] TYPE: Emergency COMPLAINT: - CHEST PAIN 06/25/2023 04:21 [facility] [place] TYPE: Emergency COMPLAINT: - NAUSEA DIAGNOSES: - Allergy status to other drugs, medicaments and biological substances - Allergy status to serum and vaccine - Allergy to peanuts - Chest pain, unspecified - Essential (primary) hypertension - Gastro-esophageal reflux disease without esophagitis - long term care pharmacist (current) use of aspirin - Other chest pain - Other remote computer terminal operator (current) drug therapy - Personal history of nicotine dependence 06/03/2023 03:12 [facility] [place] TYPE: Emergency COMPLAINT: - CHEST PAIN DIAGNOSES: - Allergy status to other drugs, medicaments and biological substances - Allergy status to serum and vaccine - Allergy to peanuts - Essential (primary) hypertension - MCFP (current) use of aspirin - Old myocardial infarction - Other chest pain - Other remote computer terminal operator (current) drug therapy - Personal history of nicotine dependence - Personal history of transient ischemic attack (TIA), and cerebral infarction without residual deficits - Precordial pain INPATIENT VISIT TRACKING (12 MO.) 11/20/2023 10:42 [facility] [place] TYPE: Observation COMPLAINT: - TIA DIAGNOSES: - Allergy status to other drugs, medicaments and biological substances - Allergy status to serum and vaccine - Allergy to peanuts - Benign prostatic hyperplasia without lower urinary tract symptoms - Essential (primary) hypertension - Gastro-esophageal reflux disease without esophagitis - Hypomagnesemia - MCFP (current) use of aspirin - Old myocardial infarction - Other fci (current) drug therapy - Personal history of nicotine dependence - Transient cerebral ischemic attack, unspecified [email or web address]
[2023-12-17] MEDS ORDERED: NITROGLYCERIN 0.4 MG SUBL SL PRN (17:00)
[2023-12-17] MEDS ORDERED: ASPIRIN 81 MG CHEW PO ONE (17:00)
[2023-12-17 17:03] LABS: BASOPHILS 0.8 % (0-2); EOSINOPHILS 2.2 % (0-6); HEMATOCRIT 39.7 % (35.0-50.0); HEMOGLOBIN 13.9 g/dL (12.0-18.0); LYMPHOCYTES 24.3 % (24-44); MCH 30.2 (27-36); MCHC 34.9 g/dl (30-36); MCV 86.4 fl (81-99); MONOCYTES 11.5 % (0-12); NEUTROPHILS 61.2 % (39-80); PLATELET COUNT 367 K/uL (140-440); RDW 14.5 (10.5-15.0)
[2023-12-17 17:14] LABS: ALBUMIN 3.6 g/dL (3.4-5.0); BILIRUBIN, TOTAL 0.7 ng/dL (0.2-1.0); BUN/CREATININE RATIO 12.24 (6.0-28.6); CALCIUM 9.1 mg/dL (8.5-10.1); CREATININE, SERUM 0.98 mg/dL (0.70-1.30); MAGNESIUM 1.8 mg/dL (1.8-2.4); PROTEIN, TOTAL 7.2 g/dL (6.4-8.2)
[2023-12-17 18:45] VITALS: BP 173/79
--- NOTE | 2023-12-18 15:30 | EKG ---
[facility] [address] [facility] [place] [address] Signed Sinus bradycardia Left axis deviation Minimal voltage criteria for LVH, may be normal variant ( [place]ino product ) Nonspecific T wave abnormality Abnormal ECG When compared with ECG of 20-NOV-2023 11:16, No significant change was found Confirmed by Maurice Anna MD ([id number]) on 12/18/2023 3:29:51 PM Electronically Signed By: MAURICE ANNA MD 12/18/23 1530 PATIENT NAME: YESSENIA GRIFFITH JOSE Electrocardiogram DATE OF : 48 PHYSICIAN: MAURICE ANNA MD REPORT #: [id number] REPORT IS CONFIDENTIAL AND NOT TO BE RELEASED WITHOUT AUTHORIZATION
== END 2023-12-17 18:40 | disposition home or self-care (01) ==
LOC: ED 16:33
PROVIDERS: Emergency Medicine
DX: R00.1 Bradycardia, unspecified (principal); I25.2 Old myocardial infarction; I10 Essential (primary) hypertension; Z86.73 Personal history of transient ischemic attack (TIA), and cerebral infarction without residual deficits; Z87.891 Personal history of nicotine dependence; Z91.010 Allergy to peanuts; Z88.7 Allergy status to serum and vaccine; Z88.8 Allergy status to other drugs, medicaments and biological substances; Z79.82 Long term (current) use of aspirin; Z79.899 Other long term (current) drug therapy
CPT/HCPCS: 36415; 71045; 80053; 83735; 84484; 85025; 93005; 93010; 99284-25; A9270